=== PATIENT | male | born 1960 | race Caucasian/White ===

== ENCOUNTER 2018-12-16 06:05 | Day surgery (SDC) | payer OTHER ==
[~2018-12-16 06:05] MED LIST: SODIUM CHLORIDE 0.9% 1,000 ML IV SCH
[2018-12-16] MEDS ORDERED: HEPARIN SODIUM,PORCINE 5,000 UNIT/ML 1 ML VIAL ONE (07:20)
[2018-12-16] MEDS ORDERED: PROPOFOL 10 MG/ML 20 ML VIAL IV ONE (07:20)
[2018-12-16] MEDS ORDERED: ROCURONIUM BROMIDE 10 MG/ML 10 ML VIAL IV ONE (07:20)
[2018-12-16] MEDS ORDERED: ISOPROTERENOL 250 MCG/1.25 ML SYR IV ONE (07:20)
[2018-12-16] MEDS ORDERED: NEOSTIGMINE 1 MG/ML 10 ML VIAL ONE (07:20)
[2018-12-16] MEDS ORDERED: MIDAZOLAM 2 MG/2 ML VIAL ONE (07:20)
[2018-12-16] MEDS ORDERED: PHENYLEPHRINE-0.9% NACL SYG 1 MG/10 ML SYRINGE ONE (07:20)
[2018-12-16] MEDS ORDERED: SUCCINYLCHOLINE CHLORIDE 100 MG/5 ML SYR IV ONE (07:20)
[2018-12-16] MEDS ORDERED: fentaNYL (PF) 50 MCG/ML 2 ML AMP ONE (07:20)
[2018-12-16] MEDS ORDERED: ONDANSETRON 4 MG/2 ML VIAL ONE (07:20)
[2018-12-16] MEDS ORDERED: DEXAMETHASONE SOD PHOS (MDV) 100 MG/10 ML VIAL ONE (07:20)
[2018-12-16] MEDS ORDERED: GLYCOPYRROLATE 0.2 MG/ML 2 ML VIAL ONE (07:20)
[2018-12-16] MEDS ORDERED: LIDOCAINE 1% INJ 10MG/ML (20 ML MDV) ONE (07:33)
[2018-12-16] MEDS ORDERED: HEPARIN SODIUM 1,000 UN/ML (10ML VL) ONE (07:46)
[2018-12-16] MEDS ORDERED: HEPARIN SODIUM (1,000 UNIT/ML) 1,000 UNIT in SODIUM CHLORIDE 0.9% 1,000 ML IRRIGATION ONE (08:17)
[2018-12-16] MEDS ORDERED: LACTATED RINGERS 1,000 ML IV ONE (10:08)
[2018-12-16] MEDS ORDERED: ACETAMINOPHEN TAB 325 MG TAB PO PRN (10:15)
[2018-12-16] MEDS ORDERED: HYDROcodone/APAP 5-325MG 1 EACH TAB PO PRN (10:15)
[2018-12-16] MEDS ORDERED: ACETAMINOPHEN IV (For NPO) 1,000 MG in EMPTY BAG 1 BAG IVPB ONE (11:30)
[2018-12-16] MEDS: SPIRONOLACTONE 25 MG TAB PO SCH (11:38)
[2018-12-16 11:43] VITALS: BMI 22.1
--- NOTE | 2018-12-16 13:57 | P.PRLE ---
RE: Joe Brooks Dear Jan Joe underwent successful ablation for atrial flutter for coronary myopathy and sustained drug refractory atrial flutter During the procedure, intracardiac echocardiography revealed a very small pericardial effusion but with a very prominent pericardial stripe almost all around the left ventricle It is quite likely that in addition to alcohol consumption he may have had myopericarditis in the past I will continue metoprolol and cardio myopathy medications for now and we'll try colchicine for a few weeks Thank you for entrusting me with the care of the patient Warm regards Sincerely Dat Wilks
[2018-12-16 20:02] LABS: Glucose,Whole Blood 139 mg/dL (75-99)
[2018-12-16] MEDS: COLCHICINE 0.6 MG EACH PO SCH (20:44)
[2018-12-17 04:30] VITALS: PULSE 63
[2018-12-17] MEDS ORDERED: LEVOTHYROXINE 50 MCG TAB PO SCH (06:30)
[2018-12-17 06:51] LABS: Glucose,Whole Blood 86 mg/dL (75-99)
[2018-12-17 08:18] VITALS: BP 135/83; RESP 18; TEMP 98.5
--- NOTE | 2018-12-17 08:45 | PCN ---
PROCEDURE NOTE Joe Brooks is an 58-year-old male patient of Dr. Wilks and Dr. Jan Franco who has cardiomyopathy, abnormal stress test, history of alcohol use and sustained typical atrial flutter drug refractory and symptomatic. He was brought in for an EP study and ablation of atrial flutter. Patient was brought to the EP lab in a fasting state. Written informed consent was obtained prior to the procedure. The right and left groins were prepped and draped as per protocol; 1% lidocaine was used for local anesthesia. Venous sheaths were placed in the right and left femoral veins and via these diagnostic mapping ablation catheter and intracardiac echo catheters were placed. The patient was in sustained atrial flutter at the start of the study. Tachycardia cycle length 262 milliseconds, QRS 76 milliseconds and QT 485 milliseconds. After atrial flutter was terminated, sinus cycle length 1129 milliseconds, AH 68 milliseconds, HV 38 milliseconds. A 3D electro anatomic mapping was performed. Intracardiac echocardiography was performed. Mild LV dysfunction was noted. The isthmus was identified, 3D mapping of the right atrium and the right atrial isthmus was performed. Entrainment mapping was performed. Isthmus dependency was confirmed. RF ablation was performed. The tachycardia was terminated. The RF line was complete from the tricuspid anulus to the IVC and a complete line of block was made. Differential pacing was performed. Bidirectional block was proven. Split potentials along the line were noted. Following that, a full EP study was performed. Sinus node recovery times of 600, 500 and 400 milliseconds were 102 5 milliseconds, 1207 and 1198 milliseconds. Corresponding corrected sinus node recovery times within normal limits. AV node Wenckebach block 400 milliseconds, VA Wenckebach block 670 milliseconds. Isuprel was started wide open. AV node Wenckebach block 260 milliseconds. No other arrhythmias were induced. No slow pathway conduction, no delta waves. ND interval was 183 milliseconds. Intracardiac echocardiography revealed the following: There was a pericardial stripe all around in the left ventricle with a very small pericardial effusion consistent with recent old pericarditis. The patient has not had any chest pain. PLAN: Conscious seen for 1-2 weeks. Continue anticoagulation, continue cardiomyopathy medications. Hopefully his LV function will improve with maintenance sinus rhythm. MMODL / IJN: [id number] /
[2018-12-17] MEDS ORDERED: METOPROLOL SUCCINATE (ER) 50 MG TAB.ER.24H PO SCH (09:00)
[2018-12-17] MEDS ORDERED: RIVAROXABAN 20 MG TAB PO SCH (09:00)
[2018-12-17] MEDS: COLCHICINE 0.6 MG EACH PO SCH (09:19)
[2018-12-17] MEDS: SPIRONOLACTONE 25 MG TAB PO SCH (09:19)
--- NOTE | 2018-12-17 10:50 | P.DS ---
Providers Attending physician: Dat Wilks Primary care physician: [facility] Course: Patient is doing well. He is lying comfortably in bed. He is walking in the hallways. Asymptomatic no chest discomfort Groins of healed well no hematoma no swelling Normal heart sounds normal S1 normal S2 no murmurs no gallops Breath sounds are reasonably clear scatted crackles Abdomen soft Extremities warm Impression Nonischemic cardio myopathy History of alcohol use Sustained atrial flutter, drug refractory status post successful ablation Follow-up twelve-lead ECG shows normal cardiac intervals normal sinus rhythm Intracardiac echo revealed a prominent pericardial stripe with a very small pericardial effusion Patient has no chest pain Plan Discharge home today New medication spironolactone 25 mg by mouth daily Take colchicine for one to 2 weeks, 0.6 mg twice a day Continue anticoagulation Follow-up in the office in 1-2 weeks for a groin check Plan - Discharge Summary Discharge Rx Participant: No New Discharge Prescriptions: New RX: Spironolactone 25 mg PO DAILY #90 tablet No Action Rivaroxaban [Xarelto] 20 mg PO DAILY Metoprolol Succinate (ER) [Toprol Xl] 50 mg PO DAILY Levothyroxine Sodium [Synthroid] 50 mcg PO DAILY Discharge Medication List Levothyroxine Sodium [Synthroid] 50 mcg PO DAILY 12/12/18 [History] Metoprolol Succinate (ER) [Toprol Xl] 50 mg PO DAILY 12/12/18 [History] Rivaroxaban [Xarelto] 20 mg PO DAILY 12/12/18 [History] RX: Spironolactone 25 mg PO DAILY #90 tablet 12/16/18 [Rx] Follow up Appointment(s)/Referral(s): Dat Wilks MD [STAFF PHYSICIAN] - 12/25/18 9:45 am (Follow up in the office with Dr. Wilks for a Site Check as scheduled for you) Activity/Diet/Wound Care/Special Instructions: Post EP study - Ablation instructions 1. Keep access sites dry for 2 days. 2. No heavy lifting or straining for 2 days. 3. Avoid bending the hips repeatedly for 2 days. 4. You may go up and down stairs slowly Call if the following is noted 1. Bleeding, increasing swelling or pain at the access sites. 2. Increasing chest discomfort, especially upon taking a deep breath. 3. Increasing shortness of breath, at rest or with exertion. 4. Undue cough / phlegm 5. Difficulty or pain while swallowing. 6. Pain or change in color in the extremities. 7. Fever, chills, rigors. 8. Increasing headache or neurologic symptoms. 9. Dizziness, fainting, palpitations Continue Rivaroxaban & metoprolol Spironolactone 25 mg by mouth daily is a new medication
== END 2018-12-17 11:18 | disposition home or self-care (01) ==
LOC: CATHEP 06:05 → 1SOBS 09:28 → CATHEP 12-17 11:18
PROVIDERS: ATTEND Internal Medicine Clinical Cardiac Electrophysiology
DX: I48.92 Unspecified atrial flutter (principal); I42.0 Dilated cardiomyopathy; I45.81 Long QT syndrome; I31.3 Pericardial effusion (noninflammatory); R94.39 Abnormal result of other cardiovascular function study; I10 Essential (primary) hypertension; Z79.01 Long term (current) use of anticoagulants; Z79.82 Long term (current) use of aspirin; Z79.890 Hormone replacement therapy; Z79.899 Other long term (current) drug therapy
CPT/HCPCS: 93623; 93662; 93613; 93653; C1894; C1769 ×2; C1730 ×2; C1759; C1893; C1732; J1644

== ENCOUNTER → 2021-07-13 | Outpatient (CLI) | payer OTHER ==
[2021-07-13 16:19] LABS: Appearance,Urine Clear (Clear); Basophils % (A) 1 %; Bilirubin,Urine Negative (Negative); Blood,Urine Negative (Negative); Color,Urine Light Yellow; Eosinophils # (A) 0.1 k/uL (0-0.7); Eosinophils % (A) 2 %; Glucose,Urine (UA) Negative (Negative); HGB 15.8 gm/dL (13.0-17.5); Ketones,Urine Negative (Negative); Leukocyte Esterase,Urine Negative (Negative); Lymphocytes # (A) 0.7 k/uL (1.0-4.8); Lymphocytes % (A) 14 %; MCH 33.2 pg (25.0-35.0); MCHC 33.6 g/dL (31.0-37.0); MCV 98.7 fL (80.0-100.0); Monocytes # (A) 0.3 k/uL (0-1.0); Monocytes % (A) 5 %; Neutrophils # (A) 3.9 k/uL (1.3-7.7); Neutrophils % (A) 77 %; Nitrite,Urine Negative (Negative); PH, Urine 5.5 (5.0-8.0); Platelet Count 144 k/uL (150-450); Protein,Urine Negative (Negative); RBC 4.77 m/uL (4.30-5.90); RDW 13.1 % (11.5-15.5); Specific Gravity,Urine 1.011 (1.001-1.035); Urobilinogen,Urine <2.0 mg/dL (<2.0)
[2021-07-14 01:42] LABS: African American GFR (CKD) 80.3 (60.0-200.0); Albumin 4.7 g/dL (3.8-4.9); Anion Gap 11.3 mmol/L (10.00-18.00); Blood Urea Nitrogen 17.5 mg/dL (9.0-27.0); Calcium 9.9 mg/dL (8.7-10.3); Carbon Dioxide 25.5 mmol/L (20.0-27.5); Non-African American GFR(CKD) 69.3 (60.0-200.0); Potassium 3.9 mmol/L (3.5-5.5); Total Bilirubin 3.5 mg/dL (0.30-1.20)
== END | disposition home or self-care (01) ==
LOC: LABPAT 16:00
PROVIDERS: ATTEND Urology
DX: Z01.812 Encounter for preprocedural laboratory examination (principal); C61 Malignant neoplasm of prostate; R35.0 Frequency of micturition
CPT/HCPCS: 36415; 80053; 81003; 85025; 87086

== ENCOUNTER → 2021-07-13 | Outpatient (CLI) | payer OTHER ==
[2021-07-13 23:55] LABS: Chol/HDL Ratio 1.69 Ratio; LDL Cholesterol,Calculated 62.4 mg/dL (0.0-131.0)
== END | disposition home or self-care (01) ==
LOC: LABWHC1 16:02
PROVIDERS: ATTEND Internal Medicine Clinical Cardiac Electrophysiology
DX: I10 Essential (primary) hypertension (principal); E78.5 Hyperlipidemia, unspecified
CPT/HCPCS: 36415; 80061; 83721

== ENCOUNTER 2021-07-22 05:38 | Observation (INO) | payer OTHER ==
[2021-07-19 12:15] VITALS: BMI 22.1
--- NOTE | 2021-07-21 13:06 | P.HPIHPCON ---
History of Present Illness H&P Date: 07/21/21 Chief Complaint: Prostate cancer This is a 61-year-old male with history of high-volume Domitila 6 prostate cancer, PSA of 16.2. Option of continued observation, robotic prostatectomy, and radiation were discussed with him in detail. Risk and benefit of each approach was discussed. He agreed to proceed with a robotic radical prostatectomy. Discussed with him the risk which includes but not limited to bleeding, infection, injury to nearby organs which includes but not limited to bladder, urethra, rectum, bowel. Discussed the risk of urinary incontinence and erectile dysfunction. Discussed potential of cancer recurrence even with surgical removal. Discussed also risk from anesthesia which includes but not limited to heart attack, stroke, blood clots. He understood all the risk and agreed to proceed with robotic-assisted laparoscopic prostatectomy Consent for Procedure: I have explained the operation/procedure to the patient, including the risks, benefits, side effects, alternative therapies (including not receiving the proposed treatment or service), the likelihood of the patient achieving his/her goals, and potential recuperation problems for the procedure/sedation/analgesia, as well as any blood products, if indicated. I also explained to the patient the risks, benefits and side effects of the alternatives, as well as the risks related to not receiving the proposed procedure, care, treatment, or services. Past Medical History Past Medical History: Atrial Fibrillation, Cancer, Hyperlipidemia, Hypertension, Thyroid Disorder Additional Past Medical History / Comment(s): recent hx. of prostate cancer History of Any Multi-Drug Resistant Organisms: None Reported Additional Past Surgical History / Comment(s): cardioversion Past Anesthesia/Blood Transfusion Reactions: No Reported Reaction Smoking Status: Never smoker Medications and Allergies Home Medications Medication Instructions Recorded Confirmed Type Levothyroxine Sodium [Synthroid] 50 mcg PO DAILY 12/12/18 07/19/21 History Rivaroxaban [Xarelto] 20 mg PO DAILY 12/12/18 07/19/21 History Spironolactone 25 mg PO DAILY #90 tablet 12/16/18 07/19/21 Rx Losartan Potassium [Cozaar] 25 mg PO DAILY 07/19/21 07/19/21 History Metoprolol Tartrate [Lopressor] 12.5 mg PO BID 07/19/21 07/19/21 History Rosuvastatin [Crestor] 10 mg PO DAILY 07/19/21 07/19/21 History hydroCHLOROthiazide [Hydrodiuril] 25 mg PO DAILY 07/19/21 07/19/21 History Allergies Allergy/AdvReac Type Severity Reaction Status Date / Time No Known Allergies Allergy Verified 07/19/21 12:08 Surgical - Exam - General no distress, no pain - Eyes normal ocular movement, no pale - ENT normal nares, normal mucosa - Respiratory normal expansion, normal respiratory effort - Abdomen Abdomen: soft, non tender - Psychiatric oriented to time, oriented to person, oriented to place Assessment and Plan Assessment: 61-year-old male with history of York 6 prostate cancer OR for robotic prostatectomy
[~2021-07-22 05:38] MED LIST changes: +HEPARIN SODIUM,PORCINE/PF 5,000 UNIT/0.5 ML SYRINGE SQ PRN; -SODIUM CHLORIDE 0.9% 1,000 ML IV SCH
[2021-07-22] MEDS ORDERED: ONDANSETRON 4 MG/2 ML VIAL IVP ONE (06:12)
[2021-07-22] MEDS ORDERED: MIDAZOLAM 2 MG/2 ML VIAL IV PRN (06:12)
[2021-07-22] MEDS ORDERED: DEXAMETHASONE SOD PHOSPHATE 4 MG/ML 1 ML VIAL IV ONE (06:12)
[2021-07-22] MEDS ORDERED: LIDOCAINE 1% (10MG/ML) FOR IV START INTRADERMA PRN (06:12)
[2021-07-22] MEDS ORDERED: HYDROmorphone 0.5 MG/0.5 ML SYRINGE IVP PRN (06:12)
[2021-07-22] MEDS: LACTATED RINGERS 1,000 ML IV SCH (06:24)
[2021-07-22] MEDS ORDERED: LIDOCAINE 1% (10MG/ML) FOR IV START INTRADERMA ONE (06:45)
[2021-07-22] MEDS ORDERED: MIDAZOLAM 2 MG/2 ML VIAL IVP ONE (07:11)
[2021-07-22] MEDS ORDERED: HYDROmorphone (PF) 1 MG/ML ONE (07:28)
[2021-07-22] MEDS ORDERED: MIDAZOLAM 2 MG/2 ML VIAL ONE (07:28)
[2021-07-22] MEDS ORDERED: NEOSTIGMINE 1 MG/ML 10 ML VIAL ONE (07:28)
[2021-07-22] MEDS ORDERED: LIDOCAINE 1% INJ 10MG/ML (20 ML MDV) ONE (07:28)
[2021-07-22] MEDS ORDERED: fentaNYL (PF) 50 MCG/ML 2 ML AMP ONE (07:28)
[2021-07-22] MEDS ORDERED: ROPIVACAINE 5 MG/ML 30 ML VIAL ONE (07:28)
[2021-07-22] MEDS ORDERED: LABETALOL 5 MG/ML VIAL MDV ONE (07:28)
[2021-07-22] MEDS ORDERED: PROPOFOL 10 MG/ML 20 ML VIAL IV ONE (07:28)
[2021-07-22] MEDS ORDERED: GLYCOPYRROLATE 0.2 MG/ML 2 ML VIAL ONE (07:28)
[2021-07-22] MEDS ORDERED: KETAMINE 10 MG/ML 20 ML VIAL ONE (07:28)
[2021-07-22] MEDS ORDERED: DEXAMETHASONE SOD PHOSPHATE 4 MG/ML 1 ML VIAL ONE (07:28)
[2021-07-22] MEDS ORDERED: ROCURONIUM 10 MG/ML (5 ML VIAL) IV ONE (07:28)
[2021-07-22 07:33] LABS: African American GFR (CKD) >90 (>60 ml/min/1.73 sqM); Anion Gap 4 mmol/L; Blood Urea Nitrogen 16 mg/dL (9-20); Calcium 9.1 mg/dL (8.4-10.2); Carbon Dioxide 30 mmol/L (22-30); Chloride 97 mmol/L (98-107); Glucose 96 mg/dL (74-99); Non-African American GFR(CKD) 85 (>60 ml/min/1.73 sqM); Potassium 4.5 mmol/L (3.5-5.1); Sodium 131 mmol/L (137-145)
[2021-07-22] MEDS ORDERED: HYDROcodone/APAP 5-325MG 1 EACH TAB PO PRN (07:47)
[2021-07-22] MEDS ORDERED: BUPIVACAINE (PF) 0.5% 30 ML VIAL SQ ONE (08:00)
--- NOTE | 2021-07-22 08:42 | P.ANPRN ---
Procedure Note - Anesthesia - Nerve Block Performed Bilateral Erector Spinae Single Time Out Performed: Yes Date of Procedure: 07/22/21 Procedure Start Time: 07:11 Location of Patient: PreOp Indication: Acute Post-Operative Pain, Requested by Surgeon Sedation Type: Sedate with meaningful contact maintained Preparation: Sterile Prep, Sterile Dressing Position: Prone Needle Types: Facet Needle Gauge: 20, 21 Ultrasound used to visualize needle placement: Yes Ultrasound used to observe medication spread: Yes Injectate: 0.5% Ropivacaine (see comment for volume) (15 ml + decadron 4 mg per side) Blood Aspirated: No Pain Paresthesia on Injection Noted: No Resistance on Injection: Normal Image Stored and Saved: Yes Events: Uneventful and Well Tolerated
[2021-07-22] MEDS ORDERED: LACTATED RINGERS 1,000 ML IV ONE (10:13)
--- NOTE | 2021-07-22 10:54 | P.OP ---
Date of Procedure: 07/22/21 Preoperative Diagnosis: prostate Cancer Postoperative Diagnosis: same Procedure(s) Performed: robotic assisted laproscopic prostatectomy Implants: none Anesthesia: CAMMIE Surgeon: Julian Moss Estimated Blood Loss (ml): 150 Pathology: other (prostate and bilateral seminal vesicle) Condition: stable Disposition: PACU Indications for Procedure: This is a 61-year-old male with history of high-volume Seibert 6 prostate cancer, PSA of 16.2. Option of continued observation, robotic prostatectomy, and radiation were discussed with him in detail. Risk and benefit of each approach was discussed. He agreed to proceed with a robotic radical prostatecto my. Discussed with him the risk which includes but not limited to bleeding, infection, injury to nearby organs which includes but not limited to bladder, urethra, rectum, bowel. Discussed the risk of urinary incontinence and erectile dysfunction. Discussed potential of cancer recurrence even with surgical removal. Discussed also risk from anesthesia which includes but not limited to heart attack, stroke, blood clots. He understood all the risk and agreed to proceed with robotic-assisted laparoscopic prostatectomy Description of Procedure: After preoperative antibiotics were started, the patient was taken to the operating room. Anesthesia was induced and the patient was placed in supine position, with adequate padding of the pressure points, shoulders, back, legs and arms. He was then prepped and draped in the standard fashion. A critical pause was performed using two patient identifiers. A 16F franco catheter was placed to gravity drainage. A pneumo-peritoneum was created with placement of a Veress needle to 20 mm Hg without complication, and a 8 Fr trocar was placed above the umbillicus. Under direct vision a 8mm robotic ports was placed lateral to each rectus slightly below the camera port. The left iliac fossa 8mm port was placed. The right office support assistant right iliac fossa 12mm port and right paramedian 5mm portwere placed. After the patient was placed in the trendelenberg position, the robot was then docked to the 8mm robotic ports and then each robotic arm and tower was checked in relation to the patient's legs and hands to avoid inadvertent compression. The peritoneal cavity was inspected. Adhesions were taken down along the left lower quadrant sharply. An inverted U-shaped incision began laterally to the left medial umbilical ligament and extended high across the midline to the right umbilical ligament. The limbs of the "U" extended to the level of the vasa on both sides. We next developed the preperitoneal space and the space of Retzius. Cautery was used to dissected the bladder away from the prostate. After the anterior bladder neck was incised and the bladder entered the the posterior bladder neck was exposed and the ureteral orifces identified. The posterior bladder neck was then incised and dissected away from the prostate. The vas and the seminal vesicles were now exposed and dissected to their insertions into the prostate and were not spared. The posterior layer of the Denonvillier's fascia was incised to enter lm the plane between prostate and perirectal fat. Each lateral pedicle was controlled with clips and cautery for hemostasis. Nerve preservation was performed, complete nerve preservation was performed bilaterally The puboprostatic ligament was incised where it inserted into the a pex of the prostate and a plane between urethra and dorsal venous complex developed to expose the anterior urethral surface. The anterior wall of the urethra was transected with the cut setting a few millimeters distal to the apex of the prostate. The dorsal vein was ligated using 3-0 V lock The urethrovesical anastomosis was performed . the posterior denovillers was reapproximated using 3-0 V lock. A 6 and 6 inch 3-0 V-Lock suture was used to anastomose the urethra and bladder, starting at the 6:00 posterior position. Mucosa was secured in every stitch, to ensure a mucosa to mucosa anastomosis. The stitch was regularly cinched and the anastomosis tightened. Care was taken to not violate the ureteral orifices. The Franco catheter was advanced, the bladder filled, and the anastomosis was tested, as described above. Anastomsis was watertight at 150mL The periumbilical fascia was closed with 1-0-PDS suture in [id number] fashion All ports were closed with a subcuticular 4-0 monocryl and Dermabond. Sponge, instrument, and needle counts were correct at the end of the case x2. All specimens including prostate and lymph nodes were sent to pathology for diagnosis and will be available in a week. The patient tolerated the surgery well and without complication. He awoke without difficulty and was taken to the recovery room in stable condition
[2021-07-22] MEDS: KETOROLAC 30 MG/ML 1 ML VIAL IVP SCH ×2 (13:01→17:21)
[2021-07-22] MEDS: D5-0.45% NACL WITH KCL 20MEQ/L 1,000 ML IV SCH ×2 (13:02→19:33)
[2021-07-22] MEDS: ATORVASTATIN 20 MG TAB PO SCH (16:13)
[2021-07-22] MEDS: HEPARIN SODIUM,PORCINE/PF 5,000 UNIT/0.5 ML SYRINGE SQ SCH (16:13)
[2021-07-22] MEDS: METOPROLOL TARTRATE 12.5 MG TAB PO SCH (19:51)
[2021-07-23] MEDS: KETOROLAC 30 MG/ML 1 ML VIAL IVP SCH ×2 (00:36→06:32)
[2021-07-23] MEDS: HEPARIN SODIUM,PORCINE/PF 5,000 UNIT/0.5 ML SYRINGE SQ SCH ×2 (00:36→08:28)
[2021-07-23] MEDS ORDERED: LEVOTHYROXINE 50 MCG TAB PO SCH (06:30)
[2021-07-23] MEDS: D5-0.45% NACL WITH KCL 20MEQ/L 1,000 ML IV SCH (06:32)
[2021-07-23] MEDS: LACTATED RINGERS 1,000 ML IV SCH (07:05)
[2021-07-23 07:24] VITALS: BP 152/85; PULSE 72; RESP 16; TEMP 98.3
[2021-07-23] MEDS: METOPROLOL TARTRATE 12.5 MG TAB PO SCH (08:27)
[2021-07-23] MEDS: ATORVASTATIN 20 MG TAB PO SCH (08:27)
[2021-07-23] MEDS ORDERED: LOSARTAN 25 MG TAB PO SCH (09:00)
[2021-07-23] MEDS ORDERED: SPIRONOLACTONE 25 MG TAB PO SCH (09:00)
--- NOTE | 2021-07-23 10:05 | P.DS ---
Providers Date of admission: 07/23/21 02:06 Attending physician: Julian Moss MD Primary care physician: [facility] Course: The patient was admitted for a robotic-assisted radical prostatectomy. He underwent this without difficulty. His postoperative course was uneventful. He tolerated diet. His vital signs are stable. His abdomen soft. His pain is controlled. The urine is clear. His discharged home today with the Feilds catheter. It'll stay until his follow-up APPOINTMENT. Pathology is pending. Postoperative instructions been given. Tylenol Motrin for pain. Hold Xarelto until Patient Condition at Discharge: Good Plan - Discharge Summary Discharge Rx Participant: Yes New Discharge Prescriptions: No Action Rivaroxaban [Xarelto] 20 mg PO DAILY Levothyroxine Sodium [Synthroid] 50 mcg PO DAILY Spironolactone 25 mg PO DAILY #90 tablet hydroCHLOROthiazide [Hydrodiuril] 25 mg PO DAILY Rosuvastatin [Crestor] 10 mg PO DAILY Losartan Potassium [Cozaar] 25 mg PO DAILY Metoprolol Tartrate [Lopressor] 12.5 mg PO BID Discharge Medication List Levothyroxine Sodium [Synthroid] 50 mcg PO DAILY 12/12/18 [History] Rivaroxaban [Xarelto] 20 mg PO DAILY 12/12/18 [History] Spironolactone 25 mg PO DAILY #90 tablet 12/16/18 [Rx] Losartan Potassium [Cozaar] 25 mg PO DAILY 07/19/21 [History] Metoprolol Tartrate [Lopressor] 12.5 mg PO BID 07/19/21 [History] Rosuvastatin [Crestor] 10 mg PO DAILY 07/19/21 [History] hydroCHLOROthiazide [Hydrodiuril] 25 mg PO DAILY 07/19/21 [History] Activity/Diet/Wound Care/Special Instructions: Home with Fields, bed side and leg bag. Please instruct. Patient should hold his xarelto until next Discharge Disposition: HOME SELF-CARE
== END 2021-07-23 12:35 | disposition home or self-care (01) ==
LOC: OR 05:38 → 4SSUR 11:11 → OR 07-23 02:06 → 4SSUR 07-23 02:06
PROVIDERS: ADMIT Urology; ATTEND Urology
DX: C61 Malignant neoplasm of prostate (principal); I10 Essential (primary) hypertension; I42.0 Dilated cardiomyopathy; I48.91 Unspecified atrial fibrillation; I48.3 Typical atrial flutter; E78.5 Hyperlipidemia, unspecified; E07.9 Disorder of thyroid, unspecified; Z79.01 Long term (current) use of anticoagulants; Z79.890 Hormone replacement therapy; Z79.899 Other long term (current) drug therapy; Z98.890 Other specified postprocedural states
CPT/HCPCS: 55866; 64999; 86900; 86901; 88305; 80048; 86850; 88309; 87635; G0378; C1762; J2250; J1100; J2710; J0690; J2405; J2001; J3010; J1885 ×2; J1170; J2795; J2704; J1644 ×2